=== PATIENT | male | born 1965 | race Caucasian/White ===

== ENCOUNTER → 2016-03-15 | Outpatient (CLI) | payer BC ==
[2016-03-15 16:03] LABS: ASPARTATE AMINO TRANSFERASE 31 IU/L (21-57); BILIRUBIN,TOTAL 0.6 mg/dL (0.3-1.2); BLOOD UREA NITROGEN 9 mg/dL (7-22); CALCIUM 9.8 mg/dL (8.7-10.7); CHLORIDE 101 meq/L (98-112); CREATININE 0.9 mg/dL (0.70-1.50); EST GLOMERULAR FILTRATION > 60 (>60 ml/min/1.73m(2)); GLUCOSE 94 mg/dL (78-110); HDL CHOLESTEROL 59 mg/dL (40-150); POTASSIUM 4.4 meq/L (3.8-5.2); SODIUM 142 meq/L (135-145); TOTAL PROTEIN 7.6 g/dL (6.1-8.0); TRIGLYCERIDES 121 mg/dL (44-200)
== END ==
LOC: MOB LAB 12:06
PROVIDERS: ATTEND Internal Medicine
DX: I10 Essential (primary) hypertension (principal); E78.5 Hyperlipidemia, unspecified; I25.10 Atherosclerotic heart disease of native coronary artery without angina pectoris
CPT/HCPCS: 36415; 80053; 80061; 82550